=== PATIENT | female | born 1955 | race Caucasian/White ===

== ENCOUNTER 2016-09-13 12:20 | Observation (INO) ==
[2016-09-13] MEDS ORDERED: IOPAMIDOL 100 ML BOTTLE IJ ONE (12:21)
--- NOTE | 2016-09-13 13:08 | Emergency Department Note ---
Abdominal Pain HPI - General Chief Complaint: Abdominal Pain Stated Complaint: liver failure flare up Time Seen by Provider: 09/13/16 12:49 Source: patient Mode of arrival: ambulatory Limitations: no limitations - History of Present Illness HPI Narrative: 60 year old female presents with abdominal pain and shortness of breath. She has a long hx of cirrhosis of the liver and is losing weight so she can get a transplant. She states in the last week she has had increasing pain and bloating. The pain causes her to have shortness of breath. No nausea or vomiting. She takes Fentanyl 50mcg every 72 hour patch for pain. She takes hydrocodone at night before bed. She states she wants to know why she is having so much pain. Denies fever or chills. She is diabetic as well and has fibromyalgia. She is crying in the room but refuses pain medication - Related Data Home Medications Medication Instructions Recorded Confirmed Albuterol Sulfate [Proair Hfa] 8.5 gm IH QIDP 04/21/15 09/13/16 Bismuth Subsalicylate 2 tab PO DAILY PRN 04/21/15 09/13/16 [Pepto-Bismol] Calcium Carbonate/Vitamin D3 1 tab PO DAILY 04/21/15 09/13/16 [Calcium 600 + Vit D3 Tablet] FLUoxetine HCL [PROzac] 20 mg PO DAILY 04/21/15 09/13/16 Furosemide [Lasix] 40 mg PO DAILY PRN 04/21/15 09/13/16 HYDROcodone/APAP 10/325MG [[place] 1 - 2 tab PO Q6H PRN 04/21/15 09/13/16 10/325Mg] Hydrochlorothiazide [Oretic] 50 mg PO DAILY 04/21/15 09/13/16 Insulin NPH Human Isophane 50 unit SQ BID 04/21/15 09/13/16 [Novolin N] Insulin Regular, Human [HumuLIN R] 12 unit SQ TIDAC 04/21/15 09/13/16 LORazepam [Ativan] 0.5 mg PO HSP PRN 04/21/15 09/13/16 Levothyroxine [Synthroid] 175 mcg PO DAILY 04/21/15 09/13/16 Multivitamin [Men's Multi-Vitamin] 2 each PO DAILY 04/21/15 09/13/16 Potassium Citrate [Potassium 20 meq PO DAILY 04/21/15 09/13/16 Citrate ER] Pseudoephedrine [Sudafed] 30 mg PO DAILYP PRN 04/21/15 09/13/16 Ramipril [Altace] 20 mg PO DAILY 04/21/15 09/13/16 Vitamin D-3 2,000 unit PO DAILY 04/21/15 09/13/16 diphenhydrAMINE [Benadryl] 25 mg PO HSP PRN 04/21/15 09/13/16 fentaNYL [Fentanyl] 50 mcg TD Q3D 04/21/15 09/13/16 Omeprazole 20 mg PO DAILY 02/16/16 09/13/16 Gabapentin [Neurontin] 100 mg PO BID 06/28/16 09/13/16 Allergies Allergy/AdvReac Type Severity Reaction Status Date / Time codeine [CODEINE] Allergy Severe PALPITATIONS, Verified 06/28/16 12:53 CHEST PAIN, SHORTNESS OF BREATH methocarbamol [From ROBAXIN] Allergy Unknown UNKNOWN Verified 06/28/16 12:53 RXN (RASH?NAUSEA?SOB?PALPITATIONS?) aspirin [ASPIRIN] AdvReac Mild UPSET Verified 06/28/16 12:53 STOMACH ibuprofen [IBUPROFEN] AdvReac Mild UPSET Verified 06/28/16 12:53 STOMACH naproxen [NAPROXEN] AdvReac Mild UPSET Verified 06/28/16 12:53 STOMACH Review of Systems All systems ED: reviewed and negative except as stated. Abdominal Pain PMH - Past Medical History Medical history: Reports: diabetes, GERD, hypertension, liver disease, other ( esophageal varicies) Surgical history ED: Reports: appendectomy Psychiatric history: Reports: anxiety, depression [employer] history: Reports: non-contributory Family history: Reports: no significant family history - Social History Smoking status: Never smoker Alcohol use: Reports: None Physical Exam - General Limitations: no limitations General appearance: anxious - Head Head exam: atraumatic - Eye Eye exam: Present: normal appearance. Absent: scleral icterus, conjunctival injection - Neck Neck exam: Present: normal inspection, full ROM. Absent: tenderness, lymphadenopathy - Chest Chest inspection: Present: normal inspection, symmetric chest wall rise - Respiratory Respiratory exam: Present: other (decreased lung sounds in lower lobes. May be due to not taking deep breaths) - Cardiovascular Cardiovascular exam: Present: regular rate, normal heart sounds - Abdominal Exam Abdominal exam: Present: distention, guarding, normal bowel sounds. Absent: soft (liver is enlarged and hard on palpation. Diffuse upper abdominal tenderness), rebound - Extremities Exam Extremities exam: Present: normal inspection, full ROM - Neurological Exam Neurological exam: Present: alert, oriented X3 - Psychiatric Psychiatric exam: Present: normal affect, normal mood - Skin Skin exam: Present: warm, dry, intact Course Course Narrative: Dr. Smith consulted for admission. The patient and her feel as though she would benefit from staying. She is not wanting to take a deep breath and is still very short of breath. She was admitted for 5 days in the past for the same issue. Dr. Smith will admit for observation Vital Signs Temperature 97.8 F 09/13/16 12:26 Pulse Rate 79 09/13/16 12:26 Respiratory Rate 16 09/13/16 12:26 Blood Pressure 146/86 09/13/16 12:26 Pulse Oximetry (%) 92 09/13/16 12:26 Temperature 97.8 F 09/13/16 12:26 Pulse Rate 70 09/13/16 16:02 Respiratory Rate 16 09/13/16 12:26 Blood Pressure 125/62 09/13/16 16:00 Pulse Oximetry (%) 92 09/13/16 16:02 Abdominal Pain - Lab Data Lab results reviewed: Yes I reviewed the patient's lab results. Result diagrams: 09/13/16 13:16 09/13/16 13:16 Lab Results 09/13/16 09/13/16 09/13/16 Range/Units 13:16 13:16 13:16 WBC 7.7 (4.5-11.0) K/mcL RBC 4.18 (4.00-5.20) M/mcL Hgb 12.4 (12.0-15.0) g/dL Hct 37.5 (36.0-48.0) % POC Hct (36.0-48.0) % MCV 89.7 (80.0-100.0) fL MCH 29.6 (26.0-34.0) pg MCHC 33.0 (31.0-36.0) g/dL RDW 16.0 H (11.5-14.5) % Plt Count 183 (140-440) K/mcL MPV 9.4 (7.4-10.4) fL Total Counted 100 Seg Neutrophils % 61 (38-78) % Band Neutrophils % Not Reportable Lymphocytes % 34 (15-49) % Monocytes % (Manual) 5 (1-12) % Platelet Estimate Normal (NORMAL) RBC Morphology Abnorm A (NORMAL) Anisocytosis 1+ A (NONE SEEN) PT (11.9-14.5) sec INR (0.9-1.1) VBG Lactic Acid 1.2 (0.5-2.2) mmol/L POC Sodium (133-145) mmol/L Sodium 139 (133-145) mmol/L POC Potassium (3.3-5.1) mmol/L Potassium 4.0 (3.3-5.1) mmol/L POC Chloride (96-108) mmol/L Chloride 98 (96-108) mmol/L Carbon Dioxide 28 (22-30) mmol/L POC Total CO2 (22-30) mmol/L Anion Gap 13.0 (8-16) POC BUN (6-20) mg/dl BUN 20 (6-20) mg/dl Creatinine 0.6 (0.6-1.1) mg/dl POC Creatinine (0.6-1.1) mg/dl GFR Calculation 100 Glucose 143 H (70-105) mg/dL POC Glucose (70-105) mg/dL Calcium 9.1 (8.6-10.4) mg/dl POC WB Ioniz Calcium (1.16-1.32) mmol/L Total Bilirubin 0.5 (0.0-1.0) mg/dL AST 27 (0-37) U/l ALT 18 (0-40) U/l Alkaline Phosphatase 79 (39-117) U/L Ammonia (11-51) mcmol/L Total Protein 8.1 (5.9-8.4) gm/dL Albumin 3.8 (3.2-5.2) gm/dL Globulin 4.3 H (2.2-3.7) gm/dL Albumin/Globulin Ratio 0.9 L (1.0-2.3) 09/13/16 09/13/16 09/13/16 Range/Units 13:17 13:17 14:26 WBC (4.5-11.0) K/mcL RBC (4.00-5.20) M/mcL Hgb (12.0-15.0) g/dL Hct (36.0-48.0) % POC Hct 36.0 (36.0-48.0) % MCV (80.0-100.0) fL MCH (26.0-34.0) pg MCHC (31.0-36.0) g/dL RDW (11.5-14.5) % Plt Count (140-440) K/mcL MPV (7.4-10.4) fL Total Counted Seg Neutrophils % (38-78) % Band Neutrophils % Lymphocytes % (15-49) % Monocytes % (Manual) (1-12) % Platelet Estimate (NORMAL) RBC Morphology (NORMAL) Anisocytosis (NONE SEEN) PT 14.6 H (11.9-14.5) sec INR 1.1 (0.9-1.1) VBG Lactic Acid (0.5-2.2) mmol/L POC Sodium 140 (133-145) mmol/L Sodium (133-145) mmol/L POC Potassium 4.0 (3.3-5.1) mmol/L Potassium (3.3-5.1) mmol/L POC Chloride 96 (96-108) mmol/L Chloride (96-108) mmol/L Carbon Dioxide (22-30) mmol/L POC Total CO2 31 H (22-30) mmol/L Anion Gap (8-16) POC BUN 20 (6-20) mg/dl BUN (6-20) mg/dl Creatinine (0.6-1.1) mg/dl POC Creatinine 0.7 (0.6-1.1) mg/dl GFR Calculation Glucose (70-105) mg/dL POC Glucose 104 (70-105) mg/dL Calcium (8.6-10.4) mg/dl POC WB Ioniz Calcium 1.10 L (1.16-1.32) mmol/L Total Bilirubin (0.0-1.0) mg/dL AST (0-37) U/l ALT (0-40) U/l Alkaline Phosphatase (39-117) U/L Ammonia 33 (11-51) mcmol/L Total Protein (5.9-8.4) gm/dL Albumin (3.2-5.2) gm/dL Globulin (2.2-3.7) gm/dL Albumin/Globulin Ratio (1.0-2.3) - Radiology Data Radiology results reviewed: Yes I reviewed the patient's radiology results. Bilateral Lower lobe pneumonia Disposition Clinical Impression: Pneumonia Disposition: Xfer As Outpt/Obs ([facility]) Condition: Fair Referrals: Ruchi Lopez MD [Primary Care Provider] -
[2016-09-13 13:40] LABS: Mean Cell Volume 89.7 fL (80.0-100.0); Mean Corpuscular Hemoglobin 29.6 pg (26.0-34.0); Platelet Count 183 K/mcL (140-440); RBC 4.18 M/mcL (4.00-5.20)
--- NOTE | 2016-09-13 13:44 | XRay Report ---
CLINICAL INFORMATION: Dyspnea TECHNIQUE: Upright PA and lateral chest x-ray COMPARISON: 06/11/2016 FINDINGS: Pulmonary parenchymal densities in both lower lobes. Findings are probably secondary to benign volume loss. Pneumonia cannot be excluded. There has been interval worsening since previous examination. Heart size and vascularity are normal. There is a rounded density in the right hilum. This may be pulmonary vasculature but a nodule is possible. Chest CT scan is recommended. Contrast material should be given if clinically appropriate. No pleural fluid. IMPRESSION: 1. Bilateral lower lobe pulmonary parenchymal densities may be benign volume loss but pneumonia is possible 2. Rounded density in the right hilum. Recommend chest CT scan Interpreted and Authenticated by: Wei Atkinson 09/13/16
[2016-09-13 14:04] LABS: ALT/SGPT 18 U/l (0-40); Albumin 3.8 gm/dL (3.2-5.2); Albumin/Globulin Ratio 0.9 (1.0-2.3); Alkaline Phosphatase 79 U/L (39-117); Blood Urea Nitrogen 20 mg/dl (6-20)
[2016-09-13 14:32] LABS: Anisocytosis 1+ (NONE SEEN); Lymphocytes % 34 % (15-49); Monocytes % (Manual) 5 % (1-12); Platelet Estimate NORMAL (NORMAL); RBC Morphology ABNORM (NORMAL); Segmented Neutrophils % 61 % (38-78)
[2016-09-13] MEDS ORDERED: HYDROmorphone 2 MG/ML SYRINGE IV PRN ×2 (15:12→19:15)
--- NOTE | 2016-09-13 15:17 | Cat Scan Report ---
CLINICAL INFORMATION: Chronic liver disease. Dyspnea. COMPARISON: Chest x-rays dated 09/13/2016 and 06/11/2016 TECHNIQUE: Axial contrast enhanced images through the chest. Sagittally and coronally reformatted images. MIP reformatted images. 80 mL of nonionic contrast material injected intravenously. FINDINGS: Bilateral pulmonary parenchymal densities. These are in the lower lobes bilaterally, left worse than right. Appearance is consistent with pneumonia. Upper lungs are clear. Previous chest x-ray was suspicious for a possible right hilar mass. There is mild nonspecific hilar adenopathy. No discrete pathologic mass. There are multiple small lymph nodes within the mediastinum. These are perivascular and pretracheal. These may be reactive. Appearance is nonspecific. No pleural fluid. No pleural-based mass. No pericardial fluid. There are small axillary lymph nodes bilaterally. Appearance is nonspecific. Images of the upper abdomen demonstrate hepatic abnormality. Liver contour is irregular consistent with cirrhosis. The entire liver is not imaged. No detectable hepatic mass. The spleen is not imaged in its entirety. No thoracic compression fractures. No lytic lesions. IMPRESSION: 1. Bilateral lower lobe pulmonary parenchymal infiltrates consistent with pneumonia. 2. No discrete hilar mass 3. Mild mediastinal and right hilar adenopathy. Small lymph nodes in both axillae. Appearance is nonspecific 4. Abnormal liver consistent with cirrhosis Interpreted and Authenticated by: Wei Atkinson 09/13/16
[2016-09-13] MEDS ORDERED: 0.9 % SODIUM CHLORIDE 1,000 ML IV ONE (15:30)
[2016-09-13] MEDS ORDERED: LEVOFLOXACIN 750 MG/150 ML BAG IV ONE (16:08)
[2016-09-13] MEDS ORDERED: DEXTROSE 50% 50 ML VIAL IV ONE (18:16)
--- NOTE | 2016-09-13 18:47 | Internal Med History&Physical ---
Medical - H&P: HPI Patient information: Note initiated : 09/13/16 at 6:41 pm Service Date, if different from initiated Date: [] Patient: Claudia Rodriguez a 60 y/o F admitted on for liver failure flare up. Chief Complaint: [] History of present illness: Ms. Rodriguez is a 60 year old Female with h/o cirrhosis presents to the ER with abdominal pain x 3 weeks The patient notes she has had bilateral pna 3 yrs ago for which she was hospitalized for 5-6 days, since that time she had some pain the lower rib region, the pain got worse 3 weeks ago, pain was sharp in nature, worse with movement and deep inspiration, better with rest. The pain was getting unbearable therefore she presented to the ER. She has chr pain syndrome, and is on opiate pain meds, also admits to have been dependent on them. The patient lab work was unremarkable, she had a Chest x ray done which showed pna vs atelectasis and possible mediastinal lymphadenitis. The patient underwent a CT scan of the chest which showed marcela pna. The patient otherwise does not report of any fever or chills, she is not tachycardic, not hypoxic, no tachypneic. She did not endorse any acute cough. The patient is actively trying to loose weight, still has a gall bladder, notes has cirrhosis due to SCOTT (likely from morbid obesity) she wants to get on the liver transplant list and is therefore working hard to loose weight. She notes she is having distention of her abdomen, and the increased stretch landa, he has had workup done for Gall bladder this year including a hida scan which was reported as negative. Patient is able to tolerate po diet well and has no nausea and or vomiting. The patient CURB 65 score is 0, however she does get hypoxic on ambulation her Osat drops to 89 and gets tachycardic, She is also a cirrhotic which makes her immunocompromised patient who will not exhibit the clinical signs of obvious infection. She was therefore admitted to the hospital of observation. All systems: reviewed and no additional remarkable complaints except as stated ( hpi) Medical - H&P: PMH Medical history: Medical History (Last Updated 09/13/16 @ 18:23 by Maxine Malave PA-C) Abdominal pain (Acute) DM ANDI Cirrhosis asthma chr pain syndrome moribd obesity Surgical history: h/o hystrectomy right knee TKA Family history: reviewed and not pertinent Social history: ex drug use in college no etoh non smoker ,9used in college lives with . Medical - H&P: Meds Home Medications Medication Instructions Recorded Confirmed Type Albuterol Sulfate [Proair Hfa] 8.5 gm IH QIDP 04/21/15 09/13/16 History Bismuth Subsalicylate 2 tab PO DAILY PRN 04/21/15 09/13/16 History [Pepto-Bismol] Calcium Carbonate/Vitamin D3 1 tab PO DAILY 04/21/15 09/13/16 History [Calcium 600 + Vit D3 Tablet] FLUoxetine HCL [PROzac] 20 mg PO DAILY 04/21/15 09/13/16 History Furosemide [Lasix] 40 mg PO DAILY PRN 04/21/15 09/13/16 History HYDROcodone/APAP 10/325MG [[place] 1 - 2 tab PO Q6H PRN 04/21/15 09/13/16 History 10/325Mg] Hydrochlorothiazide [Oretic] 50 mg PO DAILY 04/21/15 09/13/16 History Insulin NPH Human Isophane 50 unit SQ BID 04/21/15 09/13/16 History [Novolin N] Insulin Regular, Human [HumuLIN R] 12 unit SQ TIDAC 04/21/15 09/13/16 History LORazepam [Ativan] 0.5 mg PO HSP PRN 04/21/15 09/13/16 History Levothyroxine [Synthroid] 175 mcg PO DAILY 04/21/15 09/13/16 History Multivitamin [Men's Multi-Vitamin] 2 each PO DAILY 04/21/15 09/13/16 History Potassium Citrate [Potassium 20 meq PO DAILY 04/21/15 09/13/16 History Citrate ER] Pseudoephedrine [Sudafed] 30 mg PO DAILYP PRN 04/21/15 09/13/16 History Ramipril [Altace] 20 mg PO DAILY 04/21/15 09/13/16 History Vitamin D-3 2,000 unit PO DAILY 04/21/15 09/13/16 History diphenhydrAMINE [Benadryl] 25 mg PO HSP PRN 04/21/15 09/13/16 History fentaNYL [Fentanyl] 50 mcg TD Q3D 04/21/15 09/13/16 History Omeprazole 20 mg PO DAILY 02/16/16 09/13/16 History Gabapentin [Neurontin] 100 mg PO BID 06/28/16 09/13/16 History Allergies Allergy/AdvReac Type Severity Reaction Status Date / Time codeine [CODEINE] Allergy Severe PALPITATIONS, Verified 06/28/16 12:53 CHEST PAIN, SHORTNESS OF BREATH methocarbamol [From ROBAXIN] Allergy Unknown UNKNOWN Verified 06/28/16 12:53 RXN (RASH?NAUSEA?SOB?PALPITATIONS?) aspirin [ASPIRIN] AdvReac Mild UPSET Verified 06/28/16 12:53 STOMACH ibuprofen [IBUPROFEN] AdvReac Mild UPSET Verified 06/28/16 12:53 STOMACH naproxen [NAPROXEN] AdvReac Mild UPSET Verified 06/28/16 12:53 STOMACH Medical - H&P: Exam - Constitutional Vitals: Temp Pulse Resp BP Pulse Ox 97.8 F 70 16 125/62 92 09/13/16 12:26 09/13/16 16:02 09/13/16 12:26 09/13/16 16:00 09/13/16 16:02 Exam: GENERAL: The patient is a well-developed, well-nourished in no apparent distress. Is alert and oriented x3. morbidly obese VITAL SIGNS: Reviewed and as noted elsewhere. HEENT: Head is normocephalic and atraumatic. Extraocular muscles are intact. Pupils are equal, round, and reactive to light. Nares appeared normal. Mouth appears any without lesions. Mucous membranes are moist. NECK: Normal to inspection, Supple, No lymphadenopathy or thyromegaly. LUNGS: Air entry equal on both sides, no wheezing, crackles or rhonchi noted. No accessory muscles of respiration HEART: Regular rate and rhythm normal, S1 and S2 heard, no Gallop, S3 or Rub Noted, No Gross murmur heard. Marcela edema feet ABDOMEN: Soft, generalized tenderness to palpation appers distended. Positive bowel sounds. large pannus, no localized guarding or rigidiety noted. EXTREMITIES: No cyanosis, clubbing, rash, lesions or edema. NEUROLOGIC: Cranial nerves II through XII are grossly intact. Motor and Sensory System Grossly Intact PSYCHIATRIC: Normal affect, Normal Mood. Appropriate Behavior. SKIN: No ulceration or wounds noted, No jaundice, No rash noted. Medical - H&P: Reslt - Labs CBC & Chem 7: 09/13/16 13:16 09/13/16 13:16 Labs: Short CBC 09/13/16 Range/Units 13:16 WBC 7.7 (4.5-11.0) K/mcL Hgb 12.4 (12.0-15.0) g/dL Hct 37.5 (36.0-48.0) % Plt Count 183 (140-440) K/mcL BMP 09/13/16 13:16 Sodium 139 Potassium 4.0 Chloride 98 Carbon Dioxide 28 BUN 20 Creatinine 0.6 Glucose 143 H Calcium 9.1 Liver Function 09/13/16 Range/Units 13:16 Total Bilirubin 0.5 (0.0-1.0) mg/dL AST 27 (0-37) U/l ALT 18 (0-40) U/l Alkaline Phosphatase 79 (39-117) U/L Albumin 3.8 (3.2-5.2) gm/dL Medical - H&P: A/P - Narrative A/P Narrative: A/P Pneumonia: Treat with Rocephin and Zithromax for now, Blood cultures sent, pt has h/o cirrhosis, which makes her immunocompromised. Monitor for now, check procalcitonin. Morbid obesity: pt actively trying to loose weight Abdominal pain: likely from lower lobe pna bilaterally, Could not get CT abdomen and pelvis, USG abdomen done, prelim read says no ascites, hence SBP is extremely unlikely. official usg read pending. DM : ON NPH and Humalog at home, hold same use sliding scale insulin for here HTN: resume home bp meds. Chr pain: resume home meds monitor. ANDI: Use cpap at per home use. DVT : Hep sq Diet: Carb controlled Full code
[2016-09-13] MEDS ORDERED: BISMUTH SUBSALICYLATE PO PRN (19:15)
[2016-09-13] MEDS ORDERED: DEXTROSE 50% 50 ML VIAL IV PRN (19:15)
[2016-09-13] MEDS ORDERED: NALOXONE HCL 0.4 MG/ML VIAL IV PRN (19:15)
[2016-09-13] MEDS ORDERED: FUROSEMIDE 20 MG TABLET PO PRN (19:15)
[2016-09-13] MEDS ORDERED: LORazepam 0.5 MG TABLET PO PRN (19:15)
[2016-09-13] MEDS ORDERED: ONDANSETRON 4 MG/2 ML VIAL IV PRN (19:15)
[2016-09-13] MEDS: 0.9 % SODIUM CHLORIDE 1,000 ML IV SCH (19:36)
[2016-09-13] MEDS ORDERED: IPRATROPIUM/ALBUTEROL 3 ML AMPUL.NEB NEB ONE (19:47)
[2016-09-13] MEDS: IPRATROPIUM/ALBUTEROL 3 ML AMPUL.NEB NEB SCH (19:53)
[2016-09-13] MEDS: 0.9 % SODIUM CHLORIDE 10 ML SYRINGE IV SCH (20:46)
[2016-09-13] MEDS ORDERED: cefTRIAXone 1 GM VIAL ONE (20:53)
--- NOTE | 2016-09-13 20:56 | Ultrasound Report ---
ORIGINAL REPORT CLINICAL INFORMATION: Cirrhosis. Abdominal pain. TECHNIQUE: Grayscale and color-flow Doppler spectral imaging COMPARISON: Abdominal CT scan dated 09/11/2011 FINDINGS: Gallbladder is distended. No gallstones. No biliary sludge. Gallbladder measures approximately 14 cm in maximum dimension. Gallbladder wall is mildly thickened. There is a small amount of pericholecystic fluid. Common bile duct is dilated to 10 mm. This is new since previous CT scan. No intrahepatic bile duct dilatation. No detectable choledocholithiasis. Liver is enlarged. Liver measures 25 cm maximally. Liver contour is irregular and nodular. No discrete detectable mass. No evidence for hepatocellular carcinoma. There is trace pericholecystic fluid. No other evidence for ascitic fluid Visualized portions of the pancreas are negative. Spleen is enlarged. Spleen measures 18.9 x 8.0 x 7.5 cm. Normal hepatopedal portal venous flow. Portal vein is prominent. Portal vein measures 18 mm in diameter. Right kidney measures 14.4 x 4.9 x 6.9 cm. Left kidney measures 13.4 x 4.5 x 5.5 cm. There are multiple simple cysts bilaterally. No hydronephrosis. No solid mass. Largest cyst in the right kidney measures 4.5 cm. Largest cyst in the left kidney measures 4.2 cm. Abdominal aorta is poorly visualized IMPRESSION: 1. Distended gallbladder with mildly thickened wall. No gallbladder calculi or sludge. 2. Dilated common bile duct. Common bile duct measures 9.9 mm in diameter. No intrahepatic bile duct dilatation 3. Hepatomegaly. Liver contour is irregular and nodular. No focal mass. 4. Splenomegaly. Hepatopedal portal venous flow 5. Enlarged kidneys with multiple cysts. No solid mass or hydronephrosis. ADDENDUM #1 ADDENDUM: Comparison is made with previous examination dated 03/12/2016 performed at [facility]. Gallbladder was distended at that time. Gallbladder wall is unchanged. Common bile duct is unchanged and mildly distended. Overall the present examination is stable since 03/12/2016. Interpreted and Authenticated by: Wei Atkinson 09/14/16
[2016-09-13] MEDS: diphenhydrAMINE 25 MG CAPSULE PO PRN (20:57)
[2016-09-13] MEDS: HYDROcodone/APAP 10/325MG TABLET PO PRN (20:57)
[2016-09-13] MEDS: GABAPENTIN 100 MG CAPSULE PO SCH (20:57)
[2016-09-13] MEDS: HEPARIN 5,000 UNIT/ML VIAL SQ SCH (21:03)
[2016-09-13] MEDS: cefTRIAXone 1 GM in DEXTROSE 5% IN WATER 50 ML IV SCH (21:03)
[2016-09-13] MEDS: INSULIN LISPRO 1 UNIT/0.01 ML UNIT SQ SCH (21:31)
[2016-09-13] MEDS: AZITHROMYCIN 500 MG in DEXTROSE 5% IN WATER 250 ML IV SCH (22:04)
[2016-09-13] MEDS: MAGNESIUM HYDROXIDE 30 ML ORAL.SUSP PO PRN (22:25)
[2016-09-14] MEDS: IPRATROPIUM/ALBUTEROL 3 ML AMPUL.NEB NEB SCH ×4 (00:04→19:36)
[2016-09-14] MEDS: 0.9 % SODIUM CHLORIDE 10 ML SYRINGE IV SCH ×3 (05:46→21:31)
[2016-09-14 06:12] LABS: Basophils # (Auto) 0 K/mcL (0.0-0.3); Basophils % (Auto) 0.3 % (0.0-2.0); Eosinophils # (Auto) 0.1 K/mcL (0.0-0.7); Granulocytes % (Auto) 62.6 % (38.0-78.0); Lymphocytes # (Auto) 2.1 K/mcL (1.5-4.8); Lymphocytes % (Auto) 28.9 % (15.5-49.0); Mean Cell Volume 90.9 fL (80.0-100.0); Mean Corpuscular HGB Conc 32.8 g/dL (31.0-36.0); Mean Corpuscular Hemoglobin 29.8 pg (26.0-34.0); Monocytes # (Auto) 0.5 K/mcL (0.1-0.9); Monocytes % (Auto) 6.2 % (1.0-12.0); Platelet Count 188 K/mcL (140-440); Red Cell Distribution Width 15.8 % (11.5-14.5)
[2016-09-14 06:34] LABS: ALT/SGPT 15 U/l (0-40); Albumin 3.7 gm/dL (3.2-5.2); Albumin/Globulin Ratio 0.9 (1.0-2.3); Alkaline Phosphatase 74 U/L (39-117); Bilirubin,Direct < 0.2 mg/dL (0.0-0.3); Blood Urea Nitrogen 16 mg/dl (6-20); Gamma Glutamyl Transpeptidase 98 U/L (5-36)
[2016-09-14] MEDS: INSULIN LISPRO 1 UNIT/0.01 ML UNIT SQ SCH ×4 (07:31→21:28)
[2016-09-14] MEDS: OMEPRAZOLE 20 MG CAPSULE PO SCH (07:33)
[2016-09-14] MEDS: LEVOTHYROXINE 25 MCG TABLET PO SCH (07:33)
[2016-09-14] MEDS: LEVOTHYROXINE 150 MCG TABLET PO SCH (07:33)
[2016-09-14] MEDS: 0.9 % SODIUM CHLORIDE 1,000 ML IV SCH (07:39)
--- NOTE | 2016-09-14 08:24 | Internal Med Progress Note ---
Medical - PN: Subj Patient information: Note initiated : 09/14/16 at 8:24 am Service Date, if different from initiated Date: [] Patient: Claudia Rodriguez 60 y/o F admitted on 09/13/16 for liver failure flare up. Chief Complaint: [] Interval history: Ms. Rodriguez is a 60 year old Female with h/o cirrhosis presents to the ER with abdominal pain x 3 weeks The patient notes she has had bilateral pna 3 yrs ago for which she was hospitalized for 5-6 days, since that time she had some pain the lower rib region, the pain got worse 3 weeks ago, pain was sharp in nature, worse with movement and deep inspiration, better with rest. The pain was getting unbearable therefore she presented to the ER. She has chr pain syndrome, and is on opiate pain meds, also admits to have been dependent on them. The patient lab work was unremarkable, she had a Chest x ray done which showed pna vs atelectasis and possible mediastinal lymphadenitis. The patient underwent a CT scan of the chest which showed marcela pna. The patient otherwise does not report of any fever or chills, she is not tachycardic, not hypoxic, no tachypneic. She did not endorse any acute cough. The patient is actively trying to loose weight, still has a gall bladder, notes has cirrhosis due to SCOTT (likely from morbid obesity) she wants to get on the liver transplant list and is therefore working hard to loose weight. She notes she is having distention of her abdomen, and the increased stretch landa, he has had workup done for Gall bladder this year including a hida scan which was reported as negative. Patient is able to tolerate po diet well and has no nausea and or vomiting. The patient CURB 65 score is 0, however she does get hypoxic on ambulation her Osat drops to 89 and gets tachycardic, She is also a cirrhotic which makes her immunocompromised patient who will not exhibit the clinical signs of obvious infection. She was therefore admitted to the hospital of observation. Sep;y 7: Pt seen examined, doing well this AM, pain is much better, no nausea and or vomiting, eating breakfast, sitting comfortably in the chair with no issues. results of the ultrasound and lab test reviewed with her. she was hypoxic this AM, but otherwise has remained off oxygen. Denies any new complaints. Pertinent ROS: Denies headache, dizziness Denies chest pain, palpitations Denies cough or shortness of breath abdominal pain improved. nausea or vomiting. - Constitutional Vitals: Vital Signs Temp Pulse Resp BP Pulse Ox 97.8 F 68 16 126/72 93 09/14/16 08:00 09/14/16 08:00 09/14/16 08:00 09/14/16 08:00 09/14/16 08:00 Period Temp Pulse Resp BP Sys/Kahn Pulse Ox Last 24 Hr 97.8 F-98.4 F 68-103 16-22 125-134/62-97 88-97 Intake and Output 09/13/16 09/14/16 09/14/16 21:59 05:59 13:59 Intake Total 940 / 2090 1408 / 1408 802 / 802 Balance 940 / 2090 1408 / 1408 802 / 802 Weight 282 lb Intake & Output: Intake & Output 09/13/16 09/14/16 09/14/16 21:59 05:59 13:59 Intake Total 940 / 2090 1408 / 1408 802 / 802 Balance 940 / 2090 1408 / 1408 802 / 802 Weight 282 lb Intake: IV 140 / 140 308 / 308 802 / 802 Sodium Chloride 0.9% 1, 140 / 140 58 / 58 802 / 802 000 ml @ 100 mls/hr IV . Q10H [facility] Rx#:[id number] Zithromax 500 mg In 250 / 250 Dextrose 5% in Water 250 ml @ 250 mls/hr IV Q24@ 1000 [facility] Rx#:[id number] Oral 800 / 800 1100 / 1100 Other: Meal yogurt Percent of Meal Consumed 100% Feeding Ability Independent # Voids 1 1 # Bowel Movements 1 Exam: Constitutional; Afebrile, cooperative, alert, not in distress. Eyes- No icterus, , No periorbital swelling Ears- Ext ear normal, hearing normal to conversation. Neck- Midline trachea, supple Respiratory system: Air Entry equal on both sides, No crackles or wheezing, no rhonchi. CVS- Rate rhythm regular, S1,S2 heard, no gallop, no rub. Abdomen- mild diffuse tenderness, no guarding or rigidity. 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 Medical - PN: Obj Da - Labs CBC & Chem 7: 09/14/16 04:44 09/14/16 04:44 Labs: Abnormal Lab Results 09/14/16 09/14/16 04:44 04:44 RBC 3.90 L Hgb 11.6 L Hct 35.5 L RDW 15.8 H Glucose 128 H GGT 98 H Globulin 3.9 H Albumin/Globulin Ratio 0.9 L Meds: Medications Hydrocodone Bitart/Acetaminophen ([place] 10/325mg) 1 - 2 tab PO Q6H PRN PRN Reason: Pain Last Admin: 09/13/16 20:57 Dose: 1 tab Albuterol/Ipratropium (Duoneb) 3 ml NEB Q6HRT [facility] Last Admin: 09/14/16 07:49 Dose: 3 ml Calcium/Vitamin D (Calcium W/Vit D3) 500 mg PO DAILY [facility] Dextrose (Dextrose 50%) 0 ml IV UD PRN PRN Reason: Hypoglycemia Diagnostic Test (Pha) (Accu-Chek) 1 each FS ACHS [facility] Last Admin: 09/14/16 07:30 Dose: 1 each Diphenhydramine HCl (Benadryl) 25 mg PO HSP PRN PRN Reason: Sedation Last Admin: 09/13/16 20:57 Dose: 25 mg Fentanyl (Duragesic) 50 mcg TOPICAL Q72H [facility] Fluoxetine HCl (Prozac) 20 mg PO DAILY [facility] Furosemide (Lasix) 40 mg PO DAILY PRN PRN Reason: Retention Gabapentin (Neurontin) 100 mg PO BID [facility] Last Admin: 09/13/16 20:57 Dose: 100 mg Heparin Sodium (Porcine) (Heparin) 5,000 unit SQ Q12 [facility] Last Admin: 09/13/16 21:03 Dose: 5,000 unit Hydrochlorothiazide (Oretic) 50 mg PO DAILY [facility] Hydromorphone HCl (Dilaudid) 0.5 mg IV Q4-6HP PRN PRN Reason: Pain Azithromycin 500 mg/ Dextrose 250 mls @ 250 mls/hr IV Q24@1000 [facility] Stop: 09/15/16 10:59 Last Infusion: 09/13/16 23:05 Dose: Infused Ceftriaxone Sodium 1 gm/ (Dextrose) 50 mls @ 100 mls/hr IV Q24H [facility] Last Admin: 09/13/16 21:03 Dose: Not Given Sodium Chloride (Sodium Chloride 0.9%) 1,000 mls @ 100 mls/hr IV .Q10H [facility] Stop: 09/14/16 15:14 Last Admin: 09/14/16 07:39 Dose: 100 mls/hr Insulin Human Lispro (Humalog) 0 unit SQ ACHS [facility] PRN Reason: Protocol Last Admin: 09/14/16 07:31 Dose: 2 unit Iron Carb/Multivit/Typing Section Chief/Folic Acid (Multivitamin W/Minerals) 2 tab PO DAILY [facility] Levothyroxine [facility]th[facility]) [facility] Last Admin: 09/14/16 07:33 Dose: 150 mcg Levothyroxine Sodium (Synthroid) 25 mcg PO QAMAC [facility] Last Admin: 09/14/16 07:33 Dose: 25 mcg Lisinopril (Zestril) 40 mg PO DAILY [facility] Lorazepam (Ativan) 0.5 mg PO HSP PRN PRN Reason: Anxiety Magnesium Hydroxide (Milk Of Magnesia) 30 ml PO DAILYP PRN PRN Reason: Constipation Last Admin: 09/13/16 22:25 Dose: 30 ml Naloxone HCl (Narcan) 0.1 mg IV Q2MIN PRN PRN Reason: Opiate Reversal Omeprazole (Prilosec) 20 mg PO ACB [facility] Last Admin: 09/14/16 07:33 Dose: 20 mg Ondansetron HCl (Zofran) 4 mg IV Q6HP PRN PRN Reason: Nausea And Vomiting Potassium [facility] ([facility]rate) [facility] Sodium Chloride (Saline Flush) 10 ml IV Q8 [facility] Last Admin: 09/14/16 05:46 Dose: Not Given Vitamin D (Vitamin D3) 2,000 unit PO DAILY [facility] - Impressions CLINICAL INFORMATION: Cirrhosis. Abdominal pain. TECHNIQUE: Grayscale and color-flow Doppler spectral imaging COMPARISON: Abdominal CT scan dated 09/11/2011 FINDINGS: Gallbladder is distended. No gallstones. No biliary sludge. Gallbladder measures approximately 14 cm in maximum dimension. Gallbladder wall is mildly thickened. There is a small amount of pericholecystic fluid. Common bile duct is dilated to 10 mm. This is new since previous CT scan. No intrahepatic bile duct dilatation. No detectable choledocholithiasis. Liver is enlarged. Liver measures 25 cm maximally. Liver contour is irregular and nodular. No discrete detectable mass. No evidence for hepatocellular carcinoma. There is trace pericholecystic fluid. No other evidence for ascitic fluid Visualized portions of the pancreas are negative. Spleen is enlarged. Spleen measures 18.9 x 8.0 x 7.5 cm. Normal hepatopedal portal venous flow. Portal vein is prominent. Portal vein measures 18 mm in diameter. Right kidney measures 14.4 x 4.9 x 6.9 cm. Left kidney measures 13.4 x 4.5 x 5.5 cm. There are multiple simple cysts bilaterally. No hydronephrosis. No solid mass. Largest cyst in the right kidney measures 4.5 cm. Largest cyst in the left kidney measures 4.2 cm. Abdominal aorta is poorly visualized IMPRESSION: 1. Distended gallbladder with mildly thickened wall. No gallbladder calculi or sludge. 2. Dilated common bile duct. Common bile duct measures 9.9 mm in diameter. No intrahepatic bile duct dilatation 3. Hepatomegaly. Liver contour is irregular and nodular. No focal mass. 4. Splenomegaly. Hepatopedal portal venous flow 5. Enlarged kidneys with multiple cysts. No solid mass or hydronephrosis. Medical - PN: A/P - Time Spent With Patient Total time spent is greater than 50% in coordination of care (as documented) at patient's floor/unit and/or counseling patient: - Narrative A/P Narrative: A/P Pneumonia: Treat with Rocephin and Zithromax for now, Blood cultures pending, pt has h/o cirrhosis, which makes her immunocompromised. procalcitonin is 0.07 , continue IV abx for one more day, anticipate d/c in AM if remains stable. Dialated CBD: Noted on USG, will review with radiologist if any previous imaging available, pt notes she has multiple images done in the past by her GI doctor. The patient lft are ok, no dialated intrahepatic ducts, no visualized stone, consider MRCP if this is new. Morbid obesity: pt actively trying to loose weight Abdominal pain: likely from marcela lower lobe pna, improved considerably since yesterday, monitor for now, addional imaging of abdomen if cbd dilation is new. DM : ON NPH and Humalog at home, hold same use sliding scale insulin for here, glucose seems to be well controlled. HTN: resume home bp meds. Chr pain: resume home meds monitor. ANDI: Use cpap at per home use. DVT : Hep sq Diet: Carb controlled Full code Medical - PN: Qual - VTE Deep Vein Thrombosis/Pulmonary Embolism Present on Admission: No
[2016-09-14] MEDS: cefTRIAXone 1 GM in DEXTROSE 5% IN WATER 50 ML IV SCH (08:43)
[2016-09-14] MEDS: HEPARIN 5,000 UNIT/ML VIAL SQ SCH ×2 (08:44→21:28)
[2016-09-14] MEDS: POTASSIUM CITRATE 10 MEQ TAB.XL.24H PO SCH (08:45)
[2016-09-14] MEDS: HYDROCHLOROTHIAZIDE 25 MG TABLET PO SCH (08:45)
[2016-09-14] MEDS: CALCIUM W/VIT D3 500 MG TABLET PO SCH (08:46)
[2016-09-14] MEDS: LISINOPRIL 20 MG TABLET PO SCH (08:46)
[2016-09-14] MEDS: VITAMIN D3 1,000 UNIT TABLET PO SCH (08:46)
[2016-09-14] MEDS: MULTIVIT,THER IRON,CA,FA & MIN 1 TABLET PO SCH (08:46)
[2016-09-14] MEDS: FLUoxetine HCL 20 MG CAPSULE PO SCH (08:46)
[2016-09-14] MEDS: GABAPENTIN 100 MG CAPSULE PO SCH ×2 (08:47→21:29)
[2016-09-14] MEDS ORDERED: ACETAMINOPHEN 325 MG TABLET PO PRN (10:40)
[2016-09-14] MEDS: AZITHROMYCIN 500 MG in DEXTROSE 5% IN WATER 250 ML IV SCH (13:36)
[2016-09-14] MEDS: HYDROcodone/APAP 10/325MG TABLET PO PRN (21:29)
[2016-09-14] MEDS: diphenhydrAMINE 25 MG CAPSULE PO PRN (21:39)
[2016-09-14] MEDS: MAGNESIUM HYDROXIDE 30 ML ORAL.SUSP PO PRN (22:14)
[2016-09-15] MEDS: HYDROcodone/APAP 10/325MG TABLET PO PRN (02:25)
[2016-09-15] MEDS: IPRATROPIUM/ALBUTEROL 3 ML AMPUL.NEB NEB SCH ×2 (02:28→07:30)
[2016-09-15 05:19] LABS: Basophils # (Auto) 0 K/mcL (0.0-0.3); Basophils % (Auto) 0.3 % (0.0-2.0); Eosinophils # (Auto) 0.2 K/mcL (0.0-0.7); Eosinophils % (Auto) 2.7 % (0.0-7.0); Granulocytes % (Auto) 60.7 % (38.0-78.0); Lymphocytes # (Auto) 2.2 K/mcL (1.5-4.8); Lymphocytes % (Auto) 29.5 % (15.5-49.0); Mean Corpuscular HGB Conc 32.9 g/dL (31.0-36.0); Monocytes # (Auto) 0.5 K/mcL (0.1-0.9); Monocytes % (Auto) 6.8 % (1.0-12.0); Platelet Count 174 K/mcL (140-440); Red Cell Distribution Width 16.4 % (11.5-14.5)
[2016-09-15 05:38] LABS: ALT/SGPT 14 U/l (0-40); Albumin 3.5 gm/dL (3.2-5.2); Albumin/Globulin Ratio 0.9 (1.0-2.3); Alkaline Phosphatase 71 U/L (39-117); Bilirubin,Direct < 0.2 mg/dL (0.0-0.3); Blood Urea Nitrogen 15 mg/dl (6-20); Gamma Glutamyl Transpeptidase 89 U/L (5-36); Magnesium 2.1 mg/dL (1.6-2.5); Uric Acid 8.1 mg/dL (2.5-8.0)
[2016-09-15] MEDS: 0.9 % SODIUM CHLORIDE 10 ML SYRINGE IV SCH (05:59)
[2016-09-15] MEDS: OMEPRAZOLE 20 MG CAPSULE PO SCH (06:56)
[2016-09-15] MEDS: INSULIN LISPRO 1 UNIT/0.01 ML UNIT SQ SCH (06:56)
[2016-09-15] MEDS: LEVOTHYROXINE 150 MCG TABLET PO SCH (06:56)
[2016-09-15] MEDS: LEVOTHYROXINE 25 MCG TABLET PO SCH (06:58)
[2016-09-15] MEDS: FLUoxetine HCL 20 MG CAPSULE PO SCH (08:35)
[2016-09-15] MEDS: MULTIVIT,THER IRON,CA,FA & MIN 1 TABLET PO SCH (08:35)
[2016-09-15] MEDS: VITAMIN D3 1,000 UNIT TABLET PO SCH (08:35)
[2016-09-15] MEDS: CALCIUM W/VIT D3 500 MG TABLET PO SCH (08:35)
[2016-09-15] MEDS: HYDROCHLOROTHIAZIDE 25 MG TABLET PO SCH (08:35)
[2016-09-15] MEDS: POTASSIUM CITRATE 10 MEQ TAB.XL.24H PO SCH (08:35)
[2016-09-15] MEDS: LISINOPRIL 20 MG TABLET PO SCH (08:36)
[2016-09-15] MEDS: GABAPENTIN 100 MG CAPSULE PO SCH (08:36)
[2016-09-15] MEDS: cefTRIAXone 1 GM in DEXTROSE 5% IN WATER 50 ML IV SCH (08:36)
[2016-09-15] MEDS: HEPARIN 5,000 UNIT/ML VIAL SQ SCH (08:36)
[2016-09-15] MEDS: AZITHROMYCIN 500 MG in DEXTROSE 5% IN WATER 250 ML IV SCH (09:32)
[2016-09-15] MEDS ORDERED: AZITHROMYCIN 250 MG TABLET PO ONE (09:55)
--- NOTE | 2016-09-15 10:56 | Discharge Summary ---
Medical - DS: Prov Patient information: Note initiated : 09/15/16 at 10:53 am Service Date, if different from initiated Date: [] Patient: Claudia Rodriguez 60 y/o F admitted on 09/13/16 for Liver Failure Flare Up /Pneumonia. Chief Complaint: [] Date of admission: 09/13/16 18:56 Discharge date: 09/15/16 Primary care physician: Ruchi Lopez Admitting clinician: Carmelo Smith Discharging clinician: Carmelo Smith Medical - DS: Meds - Discharge Medications Prescriptions: Azithromycin 250 mg PO DAILY #4 tablet Cefpodoxime Proxetil 200 mg PO BID #10 tablet Active and Home Medications: Home Medications Albuterol Sulfate [Proair Hfa] 8.5 gm IH QIDP 04/21/15 [History Confirmed Last Taken 06/27/16] Bismuth Subsalicylate [Pepto-Bismol] 2 tab PO DAILY PRN 04/21/15 [History Confirmed 09/13/16 Last Taken 02/15/16] Calcium Carbonate/Vitamin D3 [Calcium 600 + Vit D3 Tablet] 2 tab PO DAILY [History Confirmed 09/14/16 Last Taken 09/13/16] FLUoxetine HCL [PROzac] 20 mg PO DAILY 04/21/15 [History Confirmed 09/13/16 Last Taken 09/13/16] Furosemide [Lasix] 20 mg PO BID PRN 04/21/15 [History Confirmed 09/14/16 Last Taken 06/27/16] HYDROcodone/APAP 10/325MG [[place] 10/325Mg] 1 - 2 tab PO Q6H PRN 04/21/15 [ History Confirmed 09/13/16 Last Taken 09/12/16] Hydrochlorothiazide [Oretic] 50 mg PO DAILY 04/21/15 [History Confirmed Last Taken 06/27/16] Insulin NPH Human Isophane [Novolin N] 90 unit SQ DAILY 04/21/15 [History Confirmed 09/14/16 Last Taken 06/27/16] Insulin Regular, Human [HumuLIN R] 12 unit SQ TIDAC 04/21/15 [History Confirmed 09/13/16 Last Taken 06/27/16] Levothyroxine [Synthroid] 175 mcg PO DAILY 04/21/15 [History Confirmed 09/13/16 Last Taken 09/13/16] Multivitamin [Men's Multi-Vitamin] 2 each PO DAILY 04/21/15 [History Confirmed 09/13/16 Last Taken 09/13/16] Potassium Citrate [Potassium Citrate ER] 1,080 mg PO BID 04/21/15 [History Confirmed 09/14/16 Last Taken 09/13/16] Pseudoephedrine [Sudafed] 30 mg PO DAILYP PRN 04/21/15 [History Confirmed Last Taken Unknown] Ramipril [Altace] 20 mg PO DAILY 04/21/15 [History Confirmed 09/13/16 Last Taken 09/13/16] Vitamin D-3 1,000 unit PO DAILY 04/21/15 [History Confirmed 09/14/16 Last Taken 09/13/16] diphenhydrAMINE [Benadryl] 50 mg PO HSP PRN 04/21/15 [History Confirmed Last Taken 09/12/16] fentaNYL [Fentanyl] 50 mcg TD Q3D 04/21/15 [History Confirmed 09/13/16 Last Taken 06/27/16] Omeprazole 20 mg PO DAILY 02/16/16 [History Confirmed 09/13/16 Last Taken ] Gabapentin [Neurontin] 200 mg PO HS 06/28/16 [History Confirmed 09/14/16 Last Taken 09/13/16] Polyethylene Glycol 3350 [Miralax] 17 - 25.5 gm PO HS PRN 09/13/16 [History Confirmed 09/14/16 Last Taken 09/12/16] Cetirizine [Zyrtec] 10 mg PO DAILY 09/14/16 [History Confirmed 09/14/16 Last Taken Unknown] Cranberry [Cranberry] 500 mg PO DAILY 09/14/16 [History Confirmed 09/14/16 Last Taken Unknown] Cyanocobalamin [Vitamin B12] 1,000 mcg IM MONTHLY 09/14/16 [History Confirmed Last Taken Unknown] Insulin NPH Human Isophane [Novolin N] 50 units SQ HS 09/14/16 [History Confirmed 09/14/16 Last Taken Unknown] Insulin Regular, Human [Novolin R] 12 - 20 units SQ AC 09/14/16 [History Confirmed 09/14/16 Last Taken Unknown] Vitamin C 2 tab PO DAILY 09/14/16 [History Confirmed 09/14/16 Last Taken Unknown ] Medical - DS: Hosp Hospital course: Ms. Rodriguez is a 60 year old Female with h/o cirrhosis presents to the ER with abdominal pain x 3 weeks pain was in the lower part of the ribs. she also complained of abdominal distention. In the ER x ray chest showed marcela lower lobe pna, usg abdomen showed cirrhosis, but no ascitis, dialted cbd, pt was admitted for further management Pneumonia: Treated with cap regime, rocephin and zithromax, responded to tretment very well, on discharge ambulatory without distress, she will complete course with zithromax and cefpodoxine. microbiology was negative. Dialted CBD: noted on usg, lft did not reveal obstructive picture, only elevated ggt, the patient cbd is eesentially unchangd from her previous ultrasound done in [facility]. As per the patient she has been worked up for liver transplant and has liver doctor, Dr Norman, and a transplant doctor in [facility]. Cirrhosis: due to hoffman, she is loosing weight to become a candidiate for liver transplant. the rest of the hospital stay was unevent ful. Today she was able to ambulate well, without any concerns, she is able to tolerate po well Discharge diagnosis: Pneumonia - Time Spent with Patient Total time spent providing and/or coordinating discharge services: Less than 30 minutes Medical - DS: Exam - Constitutional Vitals: Vital Signs Temp Pulse Pulse Resp BP Pulse Ox 09/15/16 07:30 61 16 09/15/16 06:40 96.8 F L 16 124/54 92 09/15/16 04:23 98.3 F 70 16 125/77 94 09/14/16 23:15 97.3 F 70 16 129/74 94 09/14/16 22:49 93 09/14/16 19:36 74 18 09/14/16 18:50 97.3 F 71 18 122/76 94 09/14/16 16:00 97.0 F 18 131/66 93 09/14/16 13:13 74 18 09/14/16 11:16 98.5 F 71 20 136/79 93 09/14/16 10:54 16 93 Intake and Output 09/14/16 09/15/16 09/15/16 21:59 05:59 13:59 Intake Total 2049 / 2049 375 / 375 224 / 224 Output Total 650 / 650 750 / 750 251 / 251 Balance 1400 / 1400 -375 / -375 -27 / -27 Intake: IV 1250 / 1250 104 / 104 Zithromax 500 mg In 250 / 250 54 / 54 Dextrose 5% in Water 250 ml @ 250 mls/hr IV Q24@ 1000 [facility] Rx#:[id number] Rocephin 1 gm In Dextrose 50 / 50 5% in Water 50 ml @ 100 mls/hr IV Q24H [facility] Rx#: [id number] Oral 800 / 800 375 / 375 120 / 120 Output: Void Amount 650 / 650 750 / 750 251 / 251 Other: Meal Dinner Breakfast Percent of Meal Consumed 100% 100% # Voids 1 1 # Bowel Movements 1 Weight 285 lb Additional comments: Constitutional; Afebrile, cooperative, alert, not in distress. Eyes- No icterus, , No periorbital swelling Ears- Ext ear normal, hearing normal to conversation. Neck- Midline trachea, supple Respiratory system: Air Entry equal on both sides, No crackles or wheezing, no rhonchi. CVS- Rate rhythm regular, S1,S2 heard, no gallop, no rub. Abdomen- Soft nontender abdomen, no organomegaly, no tenderness, no guarding or rigidity, large pannus. 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 Medical - DS: Data Labs on day of discharge: Labs from last 24 hours 09/15/16 09/15/16 04:10 04:10 WBC 7.3 RBC 3.80 L Hgb 11.4 L Hct 34.6 L MCV 91.0 MCH 30.0 MCHC 32.9 RDW 16.4 H Plt Count 174 MPV 9.5 Gran % 60.7 Lymph % (Auto) 29.5 [place] % (Auto) 6.8 Eos % (Auto) 2.7 Baso % (Auto) 0.3 Gran # 4.4 Lymph # (Auto) 2.2 [place] # (Auto) 0.5 Eos # (Auto) 0.2 Baso # (Auto) 0 Sodium 139 Potassium 3.9 Chloride 99 Carbon Dioxide 28 Anion Gap 12.0 BUN 15 Creatinine 0.6 GFR Calculation 100 Glucose 142 H Uric Acid 8.1 H Calcium 9.1 Phosphorus 3.9 Magnesium 2.1 Total Bilirubin 0.5 Direct Bilirubin < 0.2 GGT 89 H AST 22 ALT 14 Alkaline Phosphatase 71 Lactate Dehydrogenase 204 Total Protein 7.5 Albumin 3.5 Globulin 4.0 H Albumin/Globulin Ratio 0.9 L Triglycerides 101 Medical - DS: A/P - Patient/Caregiver Discharge Instructions Activity: increase activity as tolerated Diet: Cardiac, Consistent Carbohydrate Additional Instructions: Follow up with PCP in 7-10 days Go to the ER for worsening symptoms or any other concerning symptom. Take your antibiotics as prescribed. Prescriptions: Azithromycin 250 mg PO DAILY #4 tablet Cefpodoxime Proxetil 200 mg PO BID #10 tablet - Follow up Plan Follow up with: Ruchi Lopez MD [Primary Care Provider] - 09/17/16 11:35 am Disposition: Home, Self-Care Prognosis: Fair Rehab Potential: Fair I certify that the patient requires SNF services: No Overall status at discharge: patient is progressing back to baseline Medical - DS: Qual - VTE Deep Vein Thrombosis/Pulmonary Embolism Present on Admission: No
[2016-09-16] MEDS ORDERED: fentaNYL 50 MCG PATCH TOPICAL SCH (10:00)
== END 2016-09-15 12:07 | disposition home or self-care (01) ==
LOC: ED 12:20 → MEDSUR 12:20
PROVIDERS: ADMIT Internal Medicine; ATTEND Internal Medicine